=== PATIENT | male | born 1990 | race Caucasian/White ===

== ENCOUNTER 2016-03-06 08:22 | Emergency (ER) | payer BC, OTHER ==
[~2016-03-06] VITALS: Wt 110.0 kg
[2016-03-06] MEDS ORDERED: ONDANSETRON (ODT) 4 MG TAB ODT STA (08:51)
[2016-03-06] MEDS ORDERED: MECLIZINE 12.5 MG TAB PO ONE (09:00)
--- NOTE | 2016-03-06 09:20 | ERD ---
ER Documentation Chief Complaint Date/Time DATE: 03/06/16 TIME: 09:18 Chief Complaint DIZZINESS SINCE LAST NIGHT WITH NO NEURO DEF. NO RECENT TRAUMA HPI This is a 25-year-old male presents to the ER with dizziness that started last night. Patient states that dizziness is a spinning sensation worse with movement. He admits to nausea however denies vomiting. He denies any head trauma. He denies any headaches. Episodes last anywhere from 5-10 minutes however he has had multiple episodes since yesterday. He denies any chest pain or shortness of breath. Patient had one similar episode a few months ago. ROS 12 point review of systems was done, all negative except per HPI.. Medications Home Meds Active Scripts Ondansetron Hcl* (Zofran*) 4 Mg Tab, 4 MG PO Q4H Y for NAUSEA AND OR VOMITING for 3 Days, TAB Prov:ROYER MERCHANT 03/06/16 Meclizine Hcl* (Antivert*) 12.5 Mg Tab, 12.5 MG PO Q6H Y for DIZZINESS, #20 TAB Prov:ROYER MERCHANT 03/06/16 Allergies Allergies: Coded Allergies: No Known Allergies (Verified Allergy, Unknown, 03/06/16) PMhx/Soc Medical and Surgical Hx: pt denies Medical Hx, pt denies Surgical Hx History of Surgery: No Anesthesia Reaction: No Hx Neurological Disorder: No Hx Respiratory Disorders: No Hx Cardiac Disorders: No Hx Psychiatric Problems: No Hx Miscellaneous Medical Probl: No Hx Alcohol Use: No Hx Substance Use: No Hx Tobacco Use: Yes Smoking Status: Never smoker Physical Exam Vitals Vital Signs Date Time Temp Pulse Resp B/P Pulse Ox O2 Delivery O2 Flow Rate FiO2 03/06/16 08:23 98.4 72 20 133/74 98 Physical Exam GENERAL: The patient is well developed and appropriate for usual state of health , in no apparent distress. HEENT: Atraumatic. Conjunctivae are pink. Pupils equal, round, and reactive to light. Extraocular muscles are grossly intact. No nystagmus. Bilateral tympanic membranes are clear with no evidence of erythema, bulging or perforation. NECK: C-spine is soft and supple. There is no cervical lymphadenopathy. CHEST: Clear to auscultation bilaterally. There are no rales, wheezes or rhonchi. HEART: Regular rate and rhythm. No murmurs, clicks, rubs or gallops. EXTREMITIES: Equal pulses bilaterally. There is no peripheral clubbing, cyanosis or edema. No focal swelling or erythema. Full range of motion. Grossly neurovascularly intact. NEURO: Alert and oriented. Cranial nerves II through XII are intact. Motor strength in all 4 extremities with 5/5 strength. Sensation grossly intact. Normal speech and gait. Negative Rhomberg. +2 DTRs. SKIN: There is no apparent rash or petechia. The skin is warm and dry. Result Diagram: 03/06/1690803/06/16 0909 Results 24 hrs Laboratory Tests Test 03/06/16 09:09 Alanine Aminotransferase (ALT/SGPT) 54IU/L Albumin 4.1g/dl Albumin/Globulin Ratio 1.28 Alkaline Phosphatase 72IU/L Anion Gap 18 Aspartate Amino Transf (AST/SGOT) 26IU/L Basophils # 0.110^3/ul Basophils % 0.5% Blood Morphology Comment Blood Urea Nitrogen 13mg/dl Calcium Level 9.4mg/dl Carbon Dioxide Level 26mmol/L Chloride Level 102mmol/L Creatinine 0.54mg/dl Direct Bilirubin 0.00mg/dl Eosinophils # 0.210^3/ul Eosinophils % 2.1% Globulin 3.20g/dl Glucose Level 112mg/dl Hematocrit 40.1% Hemoglobin 13.8g/dl Indirect Bilirubin 0.1mg/dl Lymphocytes # 4.010^3/ul Lymphocytes % 38.0% Mean Corpuscular Hemoglobin 28.0pg Mean Corpuscular Hemoglobin Concent 34.3g/dl Mean Corpuscular Volume 81.7fl Mean Platelet Volume 7.9fl Monocytes # 0.910^3/ul Monocytes % 8.4% Neutrophils # 5.310^3/ul Neutrophils % 51.0% Nucleated Red Blood Cells # 0.010^3/ul Nucleated Red Blood Cells % 0.0/100WBC Platelet Count 19310^3/UL Potassium Level 4.4mmol/L Red Blood Count 4.9110^6/ul Red Cell Distribution Width 13.5% Sodium Level 142mmol/L Total Bilirubin 0.1mg/dl Total Protein 7.3g/dl Urine Bilirubin NEGATIVE Urine Clarity CLEAR Urine Color LT. YELLOW Urine Glucose NEGATIVE% Urine Hemoglobin 2+ Urine Ketones NEGATIVE Urine Leukocyte Esterase NEGATIVE Urine Microscopic RBC 2-5/HPF Urine Microscopic WBC NONE SEEN/HPF Urine Nitrite NEGATIVE Urine Specific [place] >=1.030 Urine Total Protein NEGATIVE Urine Urobilinogen 0.2 E.U./dL Urine pH 5.5 White Blood Count 10.410^3/ul Current Medications Medications (Trade) Dose Ordered Sig/Mary Kay Route PRN Reason Start Time Stop Time Status Last Admin Dose Admin Meclizine HCl (Antivert) 25 mg ONCE ONCE PO 03/06/16 09:00 03/06/16 09:01 DC 03/06/16 09:10 Ondansetron HCl (Zofran Odt) 4 mg ONCE STAT ODT 03/06/16 08:51 03/06/16 08:53 DC 03/06/16 09:10 Procedures/[facility] EKG [address] elevation or T wave inversion. Signed by Dr. London. Differential Diagnosis includes but is not limited to; Benign positional vertigo , labyrinthitis, vertigo, MS, acoustic neuroma, arrhythmia, anemia, hypoglycemia , infection, dehydration. This is a 25-year-old male that presents to the ER with dizziness since yesterday. This is likely vertigo. Suspicion for acute intracranial pathology is low, patient is neurologically intact no focal neurological deficits. Patient is afebrile and well-appearing. I doubt infectious etiology. I doubt dehydration. Patient will be sent home with meclizine and Zofran. Patient needs to follow-up with his primary care doctor within 1-2 days or return to ER sooner if symptoms worsen. Plan was discussed with the patient he understands and agrees with plan. Departure Diagnosis: Primary Impression: Dizziness Condition: Stable ROYER MERCHANT Mar 06, 2016 09:20
[2016-03-06 09:27] LABS: ADD UMIC YES; URINE BILIRUBIN (Dip) NEGATIVE (NEGATIVE); URINE BLOOD (Dip) 2+ (NEGATIVE); URINE COLOR LT. YELLOW (YELLOW); URINE GLUCOSE (Dip) NEGATIVE (NEGATIVE); URINE KETONES (Dip) NEGATIVE (NEGATIVE); URINE LEUKOCYTE ESTERASE (Dip) NEGATIVE (NEGATIVE); URINE NITRITE (Dip) NEGATIVE (NEGATIVE); URINE TOTAL PROTEIN (Dip) NEGATIVE (NEGATIVE); URINE UROBILINOGEN (Dip) 0.2 E.U./dL (0.1-1.0)
[2016-03-06 09:29] LABS: BASOPHIL # 0.1 10^3/ul (0.0-0.1); BASOPHILS % 0.5 % (0.0-2.0); EOSINOPHILS # 0.2 10^3/ul (0.0-0.5); EOSINOPHILS % 2.1 % (0.0-7.0); HEMATOCRIT 40.1 % (42.0-52.0); HEMOGLOBIN 13.8 g/dl (14.0-18.0); MEAN CORPUSCULAR HGB CONC 34.3 g/dl (32.0-37.0); MEAN CORPUSCULAR VOLUME 81.7 fl (82.0-101.0); MEAN PLATELET VOLUME 7.9 fl (7.4-10.4); MONOCYTE # 0.9 10^3/ul (0.3-0.9); MONOCYTES % 8.4 % (0.0-11.0); NEUTROPHIL # 5.3 10^3/ul (1.6-7.5); PLATELET COUNT 206 10^3/UL (140-440); RED BLOOD COUNT 4.91 10^6/ul (4.70-6.10); RED CELL DISTRIBUTION WIDTH 13.5 % (11.5-14.5); UNCORRECTED WBC 10.4 10^3/ul (4.8-10.8); WHITE BLOOD COUNT 10.4 10^3/ul (4.8-10.8)
[2016-03-06 09:35] LABS: ALBUMIN 4.1 g/dl (3.3-4.9); CONDITION 1; LH ANALYZER COMMENTS 1
[2016-03-06 09:36] LABS: POTASSIUM 4.4 mmol/L (3.5-5.1)
[2016-03-06 09:38] LABS: ALBUMIN/GLOBULIN RATIO 1.28; BILIRUBIN,INDIRECT 0.1 mg/dl (0-1.1); BILIRUBIN,TOTAL 0.1 mg/dl (0.2-1.3); CREATININE 0.54 mg/dl (0.61-1.24); TOTAL PROTEIN 7.3 g/dl (6.1-8.1)
[2016-03-06 09:39] LABS: CALCIUM 9.4 mg/dl (8.4-10.2)
[2016-03-06] MEDS ORDERED: ONDA-43 PO (09:45)
[2016-03-06] MEDS ORDERED: MECL12.574 PO (09:45)
== END 2016-03-06 10:01 | disposition home or self-care (01) ==
LOC: FTE 08:22
DX: R42 Dizziness and giddiness (principal); R11.0 Nausea
CPT/HCPCS: 80053; 81001; 85025; 93005; Z7502; Z7610; 81003

== ENCOUNTER 2016-03-27 10:11 | Emergency (ER) | payer OTHER ==
[~2016-03-27] VITALS: Ht 165.1 cm; Wt 95.0 kg
[~2016-03-27 10:11] MED LIST: MECL12.574 PO; ONDA-43 PO
[2016-03-27 10:24] VITALS: Ht 165.1 cm; Wt 95.0 kg
[2016-03-27] MEDS ORDERED: KETOROLAC 30 MG INJ IM STA (11:16)
[2016-03-27] MEDS ORDERED: CYCL-319 PO (11:26)
[2016-03-27] MEDS ORDERED: IBUP-1542 PO (11:26)
[2016-03-27] MEDS ORDERED: DIAZEPAM 5 MG TAB PO ONE (11:30)
--- NOTE | 2016-03-27 11:33 | ERD ---
ER Documentation Chief Complaint Date/Time DATE: 03/27/16 TIME: 11:29 Chief Complaint BACK PAIN,RIGHT LEG PAIN HPI 25-year-old male otherwise healthy comes in with right-sided low back pain that radiates to his right leg for the past 3 days. Patient states that he woke up with the pain, without any trauma, fevers or chills. He denies paresthesias or weakness. It is described as sharp, moderate, radiating pain. Pain is worse when he rotates his back ROS All systems reviewed and are negative except as per history of present illness. Medications Home Meds Active Scripts Cyclobenzaprine Hcl* (Cyclobenzaprine Hcl*) 10 Mg Tablet, 10 MG PO TID, #15 TAB Prov:EVARISTO CARPIO PA-C 03/27/16 Ibuprofen* (Motrin*) 600 Mg Tab, 600 MG PO Q6, #30 TAB Prov:EVARISTO CARPIO PA-C 03/27/16 Ondansetron Hcl* (Zofran*) 4 Mg Tab, 4 MG PO Q4H Y for NAUSEA AND OR VOMITING for 3 Days, TAB Prov:ROYER MERCHANT 03/06/16 Meclizine Hcl* (Antivert*) 12.5 Mg Tab, 12.5 MG PO Q6H Y for DIZZINESS, #20 TAB Prov:ROYER MERCHANT 03/06/16 Allergies Allergies: Coded Allergies: No Known Allergies (Verified Allergy, Unknown, 03/06/16) PMhx/Soc History of Surgery: No Anesthesia Reaction: No Hx Neurological Disorder: No Hx Respiratory Disorders: No Hx Cardiac Disorders: No Hx Psychiatric Problems: No Hx Miscellaneous Medical Probl: No Hx Alcohol Use: No Hx Substance Use: No Hx Tobacco Use: Yes Smoking Status: Current every day smoker Physical Exam Vitals Vital Signs Date Time Temp Pulse Resp B/P Pulse Ox O2 Delivery O2 Flow Rate FiO2 03/27/16 10:24 98.3 72 18 132/76 98 Physical Exam General: Well-developed, well-nourished. The patient appears in no acute distress. HEENT: Head is normocephalic, atraumatic. No scleral icterus. Neck: Supple. Nontender. Lungs: Clear to auscultation. Normal air movement. Heart: Regular rate and rhythm. S1 and S2 are normal. No murmurs, gallops, or rubs. Abdomen: Soft, nontender, nondistended. Bowel sounds are normoactive. Back: Tenderness, patient has full range of motion with neck flexion and extension, strength lower extremities 5 out of 5 bilaterally. Sensation distally intact. Extremities: No clubbing or cyanosis. Normal pulses. Moving extremities x 4. No weakness. Neurologic: Alert and oriented 3. No focal deficits. Skin: Normal turgor. No rash or lesions. Results 24 hrs Current Medications Medications (Trade) Dose Ordered Sig/Mary Kay Route PRN Reason Start Time Stop Time Status Last Admin Dose Admin Ketorolac Tromethamine (Toradol) 30 mg ONCE STAT IM 03/27/16 11:16 03/27/16 11:17 DC 03/27/16 11:24 Diazepam (Valium) 5 mg ONCE ONCE PO 03/27/16 11:30 03/27/16 11:31 03/27/16 11:24 Procedures/[facility] ED course: Toradol 30 mg IM, Valium 5 mg p.o. is given. MDM: 25-year-old male comes in with right-sided low back pain, atraumatic that goes down his right leg. There are no signs of cauda equina, compression, dissection. This patient's pain also does not require any x-rays given that he has no midline pain. He was given pain medication, will be given a short course of Flexeril and Motrin, advised to take off work for the past 2 days. Departure Diagnosis: Primary Impression: Back pain Condition: Good Patient Instructions: Back Pain W/ Sciatica Additional Instructions: You have been given a medicine which may cause drowsiness.DO NOT DRIVE OR OPERATE DANGEROUS MACHINERY while taking this medicine! Call your primary care doctor TOMORROW for an appointment during the next 1-2 days.See the doctor sooner or return here if your condition worsens before your appointment time. EVARISTO CARPIO PA-C Mar 27, 2016 11:33
== END 2016-03-27 11:36 | disposition home or self-care (01) ==
LOC: FTE 10:11
DX: M54.5 Low back pain (principal); F17.210 Nicotine dependence, cigarettes, uncomplicated
CPT/HCPCS: J1885; Z7610; 96372

== ENCOUNTER 2017-01-25 21:39 | Emergency (ER) | payer OTHER ==
[~2017-01-25] VITALS: Ht 167.6 cm; Wt 115.5 kg
[~2017-01-25 21:39] MED LIST changes: +CYCL-319 PO; +IBUP-1542 PO
[2017-01-25 21:45] VITALS: Ht 167.6 cm; Wt 115.5 kg
[2017-01-25] MEDS ORDERED: ALBUTEROL 0.083% (NEB) 2.5 MG/3 ML AMP HHN STA (23:11)
[2017-01-25 23:33] LABS: URINE BLOOD (Dip) POC 2+ (NEGATIVE)
--- NOTE | 2017-01-25 23:54 | RADRPT ---
PROCEDURE: CHEST - 1 VIEW CLINICAL INDICATION: 26-year-old male with cough and fever. TECHNIQUE: A single frontal AP upright portable view of the chest was performed. The images were reviewed on a PACS workstation. COMPARISON: None. FINDINGS: The cardiomediastinal silhouette is within normal limits. There is a shallow inspiration with bilate ral lower lung zone subsegmental atelectasis. There is patchy infiltrate within the left upper lung zone. The pulmonary vascularity is within normal limits. There is no evidence for pneumothorax or p neumomediastinum. The osseous structures are intact. IMPRESSION: 1. Patchy left upper lung zone infiltrate. 2. Shallow inspiration. 3. Mild bibasilar subsegmental atelectasis. .Daniel Logan MD, Date Time Electronically viewed and signed by .Daniel Logan MD, on 01/25/2017 23:54 .M/
[2017-01-26] MEDS ORDERED: AZIT250T94 PO (00:52)
[2017-01-26] MEDS ORDERED: ACET500C5 PO (00:52)
[2017-01-26] MEDS ORDERED: GUAI473L22 PO (00:52)
[2017-01-26 01:00] VITALS: BP 129/68; PULSE 98; RESP 22; TEMP 99.3
--- NOTE | 2017-01-26 02:30 | ERD ---
ER Documentation Chief Complaint Chief Complaint cough x 1 week, chest congestion, body pain HPI 26-year-old male complaining of cough 2 weeks. Cough is worse the last 5-6 days, become productive. Patient also reports shortness breath. Cough is worse at night. Deep breathing also triggers cough. In the last 3-4 days, patient had noticed night sweats, states that he woke up in the night drenched in sweat. Denies abdominal pain, nausea, vomiting, or diarrhea. Denies neck pain. Denies chest pain. Denies history of asthma. In addition, patient complaining of urinary urgency with small amounts of urine. Denies dysuria. Denies urinary frequency. ROS All systems reviewed and are negative except as per history of present illness. Medications Home Meds Active Scripts Guaifenesin-Codeine Phosphate* (Guaifenesin* AC Cough Syrup) 473 Ml Liquid, 10 ML PO Q4H Y for COUGH, #120 ML Prov:ROBERT LINARES. [employer] 01/26/17 Azithromycin* (Zithromax*) 250 Mg Tablet, 250 MG PO .ZPACK DIRECTED, #6 TAB TAKE 500 MG (2 TABS) THE FIRST DAY THEN 250 MG (1 TAB) DAYS 2-5 Prov:ROBERT LINARES. [employer] 01/26/17 Acetaminophen* (Tylophen*) 500 Mg Capsule, 1 CAP PO Q6H Y for PAIN AND OR ELEVATED TEMP, #20 CAP Prov:ROBERT LINARES. [employer] 01/26/17 Cyclobenzaprine Hcl* (Cyclobenzaprine Hcl*) 10 Mg Tablet, 10 MG PO TID, #15 TAB Prov:EVARISTO CARPIO PA-C 03/27/16 Ibuprofen* (Motrin*) 600 Mg Tab, 600 MG PO Q6, #30 TAB Prov:EVARISTO CARPIO PA-C 03/27/16 Ondansetron Hcl* (Zofran*) 4 Mg Tab, 4 MG PO Q4H Y for NAUSEA AND OR VOMITING for 3 Days, TAB Prov:ROYER MERCHANT 03/06/16 Meclizine Hcl* (Antivert*) 12.5 Mg Tab, 12.5 MG PO Q6H Y for DIZZINESS, #20 TAB Prov:ROYER MERCHANT 03/06/16 Allergies Allergies: Coded Allergies: No Known Allergies (Verified Allergy, Unknown, 03/06/16) PMhx/Soc Medical and Surgical Hx: pt denies Medical Hx, pt denies Surgical Hx History of Surgery: Yes (L eye cataract removal) Anesthesia Reaction: No Hx Neurological Disorder: No Hx Respiratory Disorders: No Hx Cardiac Disorders: No Hx Psychiatric Problems: No Hx Miscellaneous Medical Probl: No Hx Alcohol Use: No Hx Substance Use: No Hx Tobacco Use: Yes Smoking Status: Former smoker Physical Exam Vitals Vital Signs Date Time Temp Pulse Resp B/P Pulse Ox O2 Delivery O2 Flow Rate FiO2 01/26/17 01:00 99.3 98 22 129/68 96 Room Air 01/25/17 23:33 Nasal Cannula 2.0 01/25/17 23:30 102 26 94 21 01/25/17 21:45 100.3 98 10 145/67 98 Physical Exam General: Well-developed, well-nourished, conscious and coherent, in no distress Skin: Warm and dry without rash, good texture and turgor Head: Normocephalic without evidence of trauma Eyes: Sclera and conjunctivae normal; pupils equal, round, and reactive to light; extraocular movements are intact Ears: Canals are patent. Tympanic membranes are clear Nose/Face: Is a mucosa erythematous and swollen with clear rhinorrhea. Mouth/throat: Mucous membranes are moist. Posterior pharynx clear without erythema or exudates Neck: Supple without meningismus or adenopathy. Carotids are equal. Trachea midline. No bruits or JVD Chest: Normal AP diameter. Good expansion without retractions. Nontender. Lungs are clear to auscultate bilaterally with good tidal volume Heart: Regular rate and rhythm. No murmur, rub, or gallops heard Extremities: Full range of motion. Good strength bilaterally. No clubbing, cyanosis, or edema. Peripheral pulses are intact. Sensation intact Neuro: Alert and oriented 4, GCS 15. Cranial nerves grossly intact. Motor and sensory exams nonfocal. Moves all extremities. Speech clear. Gait normal Results 24 hrs Laboratory Tests Test 01/25/17 23:31 Bedside Urine pH (LAB) 7.0 Bedside Urine Protein (LAB) 2+ Bedside Urine Glucose (UA) Negative Bedside Urine Ketones (LAB) Trace Bedside Urine Blood 2+ Bedside Urine Nitrite (LAB) Negative Bedside Urine Leukocyte Esterase (L Negative Current Medications Medications (Trade) Dose Ordered Sig/Mary Kay Route PRN Reason Start Time Stop Time Status Last Admin Dose Admin Albuterol (Proventil 0.083% (Neb)) 2.5 mg ONCE STAT HHN 01/25/17 23:11 01/25/17 23:13 DC 01/25/17 23:30 PROCEDURE: CHEST - 1 VIEW CLINICAL INDICATION: 26-year-old male with cough and fever. TECHNIQUE: A single frontal AP upright portable view of the chest was performed. The images were reviewed on a PACS workstation. COMPARISON: None. FINDINGS: The cardiomediastinal silhouette is within normal limits. There is a shallow inspiration with bilateral lower lung zone subsegmental atelectasis. There is patchy infiltrate within the left upper lung zone. The pulmonary vascularity is within normal limits. There is no evidence for pneumothorax or pneumomediastinum. The osseous structures are intact. IMPRESSION: 1. Patchy left upper lung zone infiltrate. 2. Shallow inspiration. 3. Mild bibasilar subsegmental atelectasis. .Daniel Logan MD, MD Date Time Electronically viewed and signed by .Daniel Logan MD, MD on 01/25/2017 23:54 .M/ CC: ROBERT LINARES [employer] Procedures/MDM Well-appearing 26-year-old male present ED with worsening cough and shortness of breath. Albuterol nebulizer treatment given to the patient in the ED. After nebulizer treatment, patient reports feeling better. Patient is noted to have low-grade fever. Chest x-ray was obtained. Chest x- ray showed patchy left upper lung infiltrate, mild bibasilar subsegmental atelectasis. This is suggestive of pneumonia. Patient also complaining of urinary urgency with small amounts urine. Urine dip is negative for urinary tract infection. Patient does not have any hypoxia. Patient appears well, stable for discharge and outpatient management. Medical decision making shared with patient and family. Education provided to patient and family. Patient and family expressed understanding of the plan. Medications on discharge: Azithromycin, Tylenol, guaifenesin with codeine. Follow-up: Primary care provider in 2-3 days or return to ED if worse. Disclaimer: Inadvertent spelling and grammatical errors are likely due to EHR/ dictation software use and do not reflect on the overall quality of patient care. Also, please note that the electronic time recorded on this note does not necessarily reflect the actual time of the patient encounter. Departure Diagnosis: Primary Impression: Pneumonia Condition: Stable Patient Instructions: Pneumonia (Adult) Additional Instructions: Call your primary care doctor TOMORROW for an appointment during the next 2-3 days.See the doctor sooner or return here if your condition worsens before your appointment time. ROBERT LINARES NP Jan 26, 2017 02:27
== END 2017-01-26 01:03 | disposition home or self-care (01) ==
LOC: FTE 21:39
DX: J18.9 Pneumonia, unspecified organism (principal); Z87.891 Personal history of nicotine dependence
CPT/HCPCS: 71010; 81003; 94664; Z7502; Z7610

== ENCOUNTER 2017-02-12 20:56 | Emergency (ER) | payer OTHER ==
[~2017-02-12] VITALS: Ht 162.6 cm; Wt 113.4 kg
[~2017-02-12 20:56] MED LIST changes: +ACET500C5 PO; +AZIT250T94 PO; +GUAI473L22 PO
[2017-02-12 20:58] VITALS: Ht 162.6 cm; Wt 113.4 kg
[2017-02-12] MEDS ORDERED: PRED20TA PO (22:21)
[2017-02-12] MEDS ORDERED: AZIT250T94 PO (22:21)
[2017-02-12] MEDS ORDERED: FLUT9.9S NASAL (22:21)
--- NOTE | 2017-02-12 22:24 | ERD ---
ER Documentation Chief Complaint Chief Complaint decreased hearing for both ears x 1 week HPI 26-year-old male presents with a one-week history of decreased hearing and congestion is bilateral ears. 2 weeks ago he was treated for URI. He has some mild nasal congestion. He has some slight return of his cough as well. Denies any bleeding or discharge. Denies any chest pain or shortness of breath. ROS All systems reviewed and are negative except as per history of present illness. Medications Home Meds Active Scripts Fluticasone Propionate (Flonase Allergy Relief) 9.9 Ml [place].susp, 1 SPRAY NASAL DAILY for 10 Days, #1 BOTTLE TO EACH NOSTRIL Prov:JULIA KUMAR MD 02/12/17 Prednisone* (Prednisone*) 20 Mg Tab, 40 MG PO DAILY for 4 Days, TAB Prov:JULIA KUMAR MD 02/12/17 Azithromycin* (Zithromax*) 250 Mg Tablet, 250 MG PO .ZPACK DIRECTED, #6 TAB TAKE 500 MG (2 TABS) THE FIRST DAY THEN 250 MG (1 TAB) DAYS 2-5 Prov:JULIA KUMAR MD 02/12/17 Guaifenesin-Codeine Phosphate* (Guaifenesin* AC Cough Syrup) 473 Ml Liquid, 10 ML PO Q4H Y for COUGH, #120 ML Prov:ROBERT LINARES NP 01/26/17 Azithromycin* (Zithromax*) 250 Mg Tablet, 250 MG PO .ZPACK DIRECTED, #6 TAB TAKE 500 MG (2 TABS) THE FIRST DAY THEN 250 MG (1 TAB) DAYS 2-5 Prov:ROBERT LINARES NP 01/26/17 Acetaminophen* (Tylophen*) 500 Mg Capsule, 1 CAP PO Q6H Y for PAIN AND OR ELEVATED TEMP, #20 CAP Prov:ROBERT LINARES NP 01/26/17 Cyclobenzaprine Hcl* (Cyclobenzaprine Hcl*) 10 Mg Tablet, 10 MG PO TID, #15 TAB Prov:EVARISTO CARPIO PA-C 03/27/16 Ibuprofen* (Motrin*) 600 Mg Tab, 600 MG PO Q6, #30 TAB Prov:EVAIRSTO CARPIO PA-C 03/27/16 Ondansetron Hcl* (Zofran*) 4 Mg Tab, 4 MG PO Q4H Y for NAUSEA AND OR VOMITING for 3 Days, TAB Prov:ROYER MERCHANT C 03/06/16 Meclizine Hcl* (Antivert*) 12.5 Mg Tab, 12.5 MG PO Q6H Y for DIZZINESS, #20 TAB Prov:ROYER MERCHANT C 03/06/16 Allergies Allergies: Coded Allergies: No Known Allergies (Verified Allergy, Unknown, 03/06/16) PMhx/Soc History of Surgery: Yes (L eye cataract removal) Anesthesia Reaction: No Hx Neurological Disorder: No Hx Respiratory Disorders: No Hx Cardiac Disorders: No Hx Psychiatric Problems: No Hx Miscellaneous Medical Probl: No Hx Alcohol Use: No Hx Substance Use: No Hx Tobacco Use: Yes Smoking Status: Current every day smoker Physical Exam Vitals Vital Signs Date Time Temp Pulse Resp B/P Pulse Ox O2 Delivery O2 Flow Rate FiO2 02/12/17 20:58 98.8 80 20 170/77 100 Physical Exam Const: [], [id number]. Head: Atraumatic Eyes: Normal Conjunctiva ENT: Normal External Ears, Nose and Mouth. TMs are decreased light reflex clear fluid bilaterally. Neck: Full range of motion..~ No meningismus. Resp: Clear to auscultation bilaterally Cardio: Regular rate and rhythm, no murmurs Abd: Soft, non tender, non distended. Normal bowel sounds Skin: No petechiae or rashes Back: No midline or flank tenderness Ext: No cyanosis, or edema Neur: Awake and alert Psych: Normal Mood and Affect Procedures/MDM Presents with decreased hearing and sensation of congestion the bilateral ears with signs of serous otitis media possible chronic peripheral in the left ear. We will treat with Flonase, short course prednisone and Zithromax recommendations to see ENT for persistent symptoms despite treatment. There is no evidence of colitis or meningitis. Patient is advised to follow-up with primary doctor this week return to the ER for new or worsening symptoms. The patient was stable with no new complaints during the ER course. Clinically, there is no current evidence to suggest meningitis, sepsis, acute abdomen, pneumonia, acute coronary syndrome, pulmonary embolism, or any other emergent condition appearing to require further evaluation or hospitalization. The patient should certainly return for any new or worsening symptoms per the aftercare instructions. They should otherwise follow-up with her primary care doctor for reevaluation this week. Departure Diagnosis: Primary Impression: Ear problem Laterality: bilateral Qualified Code: H93.93 - Problem of both ears Condition: Stable Patient Instructions: Otitis Media, Abx Tx (Adult), Eustachian Tube Obstruction (Child) Referrals: RADHA [place] MD, STEPHEN H MD Additional Instructions: Recheck with ear nose throat specialist for persistent symptoms despite treatment. May need authorization from primary doctor. Recheck otherwise for new or worsening symptoms. JULIA KUMAR MD Feb 12, 2017 22:24
[2017-02-12 22:40] VITALS: BP 143/67; PULSE 73; RESP 16; TEMP 98.3
== END 2017-02-12 22:46 | disposition home or self-care (01) ==
LOC: FTE 20:56
DX: H91.93 Unspecified hearing loss, bilateral (principal); F17.210 Nicotine dependence, cigarettes, uncomplicated
CPT/HCPCS: 99284

== ENCOUNTER 2018-08-14 20:56 | Emergency (ER) | payer OTHER ==
[~2018-08-14] VITALS: Ht 165.1 cm; Wt 111.5 kg
[~2018-08-14 20:56] MED LIST changes: +AZIT250T PO; -AZIT250T94 PO; -CYCL-319 PO; +CYCL10TA7 PO; +FLUT9.9S NASAL; -ONDA-43 PO; +ONDA4TAB13 PO; +PRED20TA PO
[2018-08-14 21:09] VITALS: Ht 165.1 cm; Wt 111.5 kg
[2018-08-14] MEDS ORDERED: ACETAMINOPHEN 500 MG TAB PO STA (23:13)
[2018-08-14] MEDS ORDERED: ACET500C5 PO (23:38)
[2018-08-14 23:48] VITALS: BP 137/79; PULSE 70; RESP 16
--- NOTE | 2018-08-15 00:16 | ERD ---
ER Documentation Chief Complaint Chief Complaint HEAD AND NECK PAIN WITH EYE PRESSURE X 1 DAY HPI This is a 28-year-old male with no medical issues who presents to the ED complaining of sharp headache x1 day. Patient states pain has been waxing and waning all day. Patient states pain lasts for a few seconds, and describes as sharp. He states pain starts at the base of his right neck and radiates upwards towards his occipital scalp and right eye. He also reports some associated sharp chest pains. He denies any photophobia or phonophobia. Denies changes in vision. denies any nausea or vomiting. Denies trauma. Denies any fevers or chills. Denies any focal weakness. Denies any other complaints. He states he smokes cigarettes but denies any other illicit drug use. No significant family cardiac history. ROS All systems reviewed and are negative except as per history of present illness. Medications Home Meds Active Scripts Acetaminophen* (Tylophen*) 500 Mg Capsule, 1 CAP PO Q6H PRN for PAIN AND OR ELEVATED TEMP, #20 CAP Prov:GEOVANNY MANCILLA PA-C 08/14/18 Fluticasone Propionate (Flonase Allergy Relief) 9.9 Ml [place].susp, 1 SPRAY NASAL DAILY for 10 Days, #1 BOTTLE TO EACH NOSTRIL Prov:JULIA KUMAR MD 02/12/17 Prednisone* (Prednisone*) 20 Mg Tab, 40 MG PO DAILY for 4 Days, TAB Prov:JULIA KUMAR MD 02/12/17 Azithromycin* (Zithromax*) 250 Mg Tablet, 250 MG PO .ZPACK DIRECTED, #6 TAB TAKE 500 MG (2 TABS) THE FIRST DAY THEN 250 MG (1 TAB) DAYS 2-5 Prov:JULIA KUMAR MD 02/12/17 Guaifenesin-Codeine Phosphate* (Guaifenesin* AC Cough Syrup) 473 Ml Liquid, 10 ML PO Q4H PRN for COUGH, #120 ML Prov:ROBERT LINARES NP 01/26/17 Azithromycin* (Zithromax*) 250 Mg Tablet, 250 MG PO .ZPACK DIRECTED, #6 TAB TAKE 500 MG (2 TABS) THE FIRST DAY THEN 250 MG (1 TAB) DAYS 2-5 Prov:ROBERT LINARES NP 01/26/17 Acetaminophen* (Tylophen*) 500 Mg Capsule, 1 CAP PO Q6H PRN for PAIN AND OR ELEVATED TEMP, #20 CAP Prov:ROBERT LINARES. [employer]CH[employer]ICIAN 01/26/17 Cyclobenzaprine Hcl* (Cyclobenzaprine Hcl*) 10 Mg Tablet, 10 MG PO TID, #15 TAB Prov:EVARISTO CARPIO PA-C 03/27/16 Ibuprofen* (Motrin*) 600 Mg Tab, 600 MG PO Q6, #30 TAB Prov:EVARISTO CARPIO PA-C 03/27/16 Ondansetron Hcl* (Zofran*) 4 Mg Tab, 4 MG PO Q4H PRN for NAUSEA AND OR VOMITING for 3 Days, TAB Prov:ROYER MERCHANT 03/06/16 Meclizine Hcl* (Antivert*) 12.5 Mg Tab, 12.5 MG PO Q6H PRN for DIZZINESS, #20 TAB Prov:ROYER MERCHANT 03/06/16 Allergies Allergies: Coded Allergies: No Known Allergies (Verified Allergy, Unknown, 03/06/16) PMhx/Soc History of Surgery: Yes (L eye cataract removal) Anesthesia Reaction: No Hx Neurological Disorder: No Hx Respiratory Disorders: No Hx Cardiac Disorders: No Hx Psychiatric Problems: No Hx Miscellaneous Medical Probl: No Hx Alcohol Use: No Hx Substance Use: No Hx Tobacco Use: Yes Smoking Status: Current every day smoker Physical Exam Vitals Vital Signs Date Temp Pulse Resp B/P (MAP) Pulse Ox O2 O2 Flow FiO2 Time Delivery Rate 08/14/18 99.2 82 18 153/80 98 21:09 (104) Physical Exam Const: No acute distress Head: Atraumatic Eyes: Normal Conjunctiva ENT: Normal External Ears, Nose and Mouth. Neck: Full range of motion. No meningismus. Resp: Clear to auscultation bilaterally Cardio: Regular rate and rhythm, no murmurs Abd: Soft, non tender, non distended. Normal bowel sounds Skin: No petechiae or rashes Back: No midline or flank tenderness Ext: No cyanosis, or edema N neuro: M/S: Alert and oriented Face: EOMI, face and pharynx with normal sensation and function Motor: Normal strength throughout Sensation: Normal sensation throughout Speech: Normal Cerebel: Normal coordination Normal gait Normal finger to nose DTR: 2+ and symmetric upper/lower extremities Psych: Normal Mood and Affect Results 24 hrs Current Medications Medications Dose Sig/Mary Kay Start Time Status Last (Trade) Ordered Route PRN Stop Time Admin Dose Reason Admin 1,000 mg ONCE STAT 08/14/18 DC 08/14/18 Acetaminophen PO 23:13 23:36 (Tylenol 08/14/18 23:14 Tab) Procedures/MDM PROCEDURES: 12-lead EKG interpretation as interpeted by Dr. Harshad Kate Normal Sinus Rhythm with ventricular rate of 67 beats per minute Normal axis Normal intervals No acute ST or T wave changes suggestive of acute ischemia or STEMI. ED COURSE: The patient was given Tylenol The medication was well tolerated and the patient had market improvement in symptoms. The patient remained stable throughout ED course. MEDICAL DECISION MAKING: This is a 28-year-old male presents with a headache. History and physical most consistent with primary headache. Vital signs are stable. No focal neurological deficits on physical exam. Clinical presentation not consistent with subarachnoid hemorrhage, epidural or subdural hematoma, IC mass, CVA, encephalitis or meningitis. His EKG was unremarkable. No evidence of acute ischemia or STEMI. Patient was dischargeed home with close follow up and mangement by PCP in 48 hours. Strict return precautions discussed. PRESCRIPTIONS: Tylenol SPECIALIST FOLLOW UP RECOMMENDED: None Patient has been advised to follow up with primary care in 1-2 days. Blood Pressure Assessment: Patient's blood pressure was elevated (>120/80) but appears stable without evidence of hypertension emergency or urgency. The patient was counseled about the risks of hypertension and urged to pursue outpatient monitoring and therapy within a week with their primary care physician. Departure Diagnosis: Primary Impression: Headache Headache type: unspecified Headache chronicity pattern: unspecified pattern Intractability: not intractable Qualified Codes: R51 - Headache Additional Impression: Atypical chest pain Condition: Stable Patient Instructions: Self-Care for Headaches Referrals: COMMUNITY CLINICS YOU HAVE RECEIVED A MEDICAL SCREENING EXAM AND THE RESULTS INDICATE THAT YOU DO NOT HAVE A CONDITION THAT REQUIRES URGENT TREATMENT IN THE EMERGENCY DEPARTMENT. FURTHER EVALUATION AND TREATMENT OF YOUR CONDITION CAN WAIT UNTIL YOU ARE SEEN IN YOUR DOCTORS OFFICE WITHIN THE NEXT 1-2 DAYS. IT IS YOUR RESPONSIBILITY TO MAKE AN APPOINTMENT FOR FOLOW-UP CARE. IF YOU HAVE A PRIMARY DOCTOR --you should call your primary doctor and schedule an appointment IF YOU DO NOT HAVE A PRIMARY DOCTOR YOU CAN CALL OUR PHYSICIAN REFERRAL HOTLINE AT IF YOU CAN NOT AFFORD TO SEE A PHYSICIAN YOU CAN CHOSE FROM THE FOLLOWING [facility] [address] [place] [facility] [address] [facility] [address] [facility] [address] [facility] [address] [facility] [facility] [address] [facility]. [facility] YOU HAVE RECEIVED A MEDICAL SCREENING EXAM AND THE RESULTS INDICATE THAT YOU DO NOT HAVE A CONDITION THAT REQUIRES URGENT TREATMENT IN THE EMERGENCY DEPARTMENT. FURTHER EVALUATION AND TREATMENT OF YOUR CONDITION CAN WAIT UNTIL YOU ARE SEEN IN YOUR DOCTORS OFFICE WITHIN THE NEXT 1-2 DAYS. IT IS YOUR RESPONSIBILITY TO MAKE AN APPOINTMENT FOR FOLOW-UP CARE. IF YOU HAVE A PRIMARY DOCTOR --you should call your primary doctor and schedule and appointment IF YOU DO NOT HAVE A PRIMARY DOCTOR YOU CAN CALL OUR PHYSICIAN REFERRAL HOTLINE AT . IF YOU CAN NOT AFFORD TO SEE A PHYSICIAN YOU CAN CHOSE FROM THE FOLLOWING [facility] [address] [place] [address] [address] [address] [address] [place] [address] [facility] [address] [place] [address] Additional Instructions: Call your primary care doctor TOMORROW for an appointment during the next 2-4 days and bring all the information and medications prescribed. If the symptoms get worse and your provider is unavailable, return to the Emergency Department immediately. GEOVANNY MANCILLA PA-C Aug 15, 2018 00:16
== END 2018-08-14 23:48 | disposition home or self-care (01) ==
LOC: FTE 20:56
DX: R51 Headache (principal); R07.89 Other chest pain
CPT/HCPCS: 93005; Z7502; Z7610